=== PATIENT | male | born 1985 | race Two or more races ===

== ENCOUNTER 2021-02-19 09:49 | Emergency (ER) | payer MEDICAID ==
[~2021-02-19] VITALS: Ht 175.3 cm; Wt 84.1 kg
[2021-02-19 09:53] VITALS: BP 124/62
[2021-02-19] MEDS ORDERED: ACETAMINOPHEN 500 MG TABLET PO ONE (12:15)
[2021-02-19 13:15] LABS: INFLUENZA TYPE A NEGATIVE FOR TYPE A (NEGATIVE); INFLUENZA TYPE B NEGATIVE FOR TYPE B (NEGATIVE)
== END 2021-02-19 14:17 | disposition home or self-care (01) ==
LOC: EMS 09:57
DX: U07.1 COVID-19 (principal)
CPT/HCPCS: 87804; 99283; U0003